=== PATIENT | female | born 1940 | race Caucasian/White ===

== ENCOUNTER 2017-09-08 07:06 | Day surgery (SDC) | payer MEDICARE, OTHER ==
[~2017-09-08] VITALS: Ht 157.5 cm; Wt 83.9 kg
[~2017-09-08 07:06] MED LIST: ACETAMINOPHEN650 M3 PO; LO-DOSE ASPIRIN81 MG PO; METOPROLOL SUCC25 MG PO; MYRBETRIQ25 MG PO; TRUSOPT10 ML OPTH; TUMS200 MG PO
--- NOTE | 2017-09-08 08:18 | NUR ---
PT HAS HAD PREVIOUS SCOPES. THIS PREP MUCH MORE TOLERABLE. PT REQUESTED PRAYER, WILL FOLLOW NEEDED
--- NOTE | 2017-09-08 08:38 | NUR ---
09/08/17 0838 Rita Hearn 0842-PATIENT ARRIVED TO PACU ON 2L NC O2 SAT 98% PATIENT REACTIVE OPENS EYES AND BACK TO SLEEP ABDOMEN ROUND AND SOFT. ENCOURAGED TO PASS FLATUS.
--- NOTE | 2017-09-08 09:39 | NUR ---
PT ARRIVED FROM PACU. PT MUCH MORE AWAKE AND CARING ON CONVERSATION. PT MARTHA PAIN AND NAUSEA. PT TOELRATING PO FLUIDS. BED RAILS UP. CALL LIGHT WITHIN REACH.
--- NOTE | 2017-09-08 09:41 | NUR ---
HAND OFF REPORT GIVEN TO KANA HERNANDEZ
--- NOTE | 2017-09-08 09:56 | NUR ---
IN TO ASSIST WITH DRESSING. DCD PER WC. HAD NO QUESTIONS ABOUT DC INSTRUCTIONS.
--- NOTE | 2017-09-08 16:56 | OR ---
[facility] [address], [place] [address] Signed DATE OF OPERATION: 09/08/2017 SURGEON: Yeimy Monroe MD PREOPERATIVE DIAGNOSES: 1. Internal hemorrhoids. 2. Hyperplastic rectal polyps in 2006. 3. Change in bowel habits with some afternoon diarrhea. POSTOPERATIVE DIAGNOSES: 1. A 3 mm polyp at 85 cm. 2. Minimal sigmoid diverticulosis. 3. Minimal internal anal skin tags. 4. Long redundant left colon. PROCEDURE: Colonoscopy with cold biopsy. ESTIMATED BLOOD LOSS: None. INDICATIONS: Ct is a 77-year-old female, who came in 2006 for a screening colonoscopy. We took out several tiny hyperplastic polyps in the mid rectum. She also had some very small internal hemorrhoid columns. In the meantime, she says she is doing fine except she gets a little diarrhea every day in the afternoon. It seems to be a change in bowel habits for her. She says there is no family history of colon cancer or polyps. She still stays busy playing the piano in [place] around [facility]. In the office, I had given Ct a pamphlet on colonoscopy and we looked at that together along with the risks including, but not limited to, gas bloating, crampy abdominal pain, bleeding, perforation, requiring surgery, and missed diagnosis. We also discussed the need for IV conscious sedation. She had expressed understanding and wished to proceed. PROCEDURE NOTE: Ct was taken into our endoscopy suite and placed in the left lateral decubitus position. She was given divided doses of 7 mg of Versed and 150 mcg of fentanyl. A digital rectal exam was performed and this was unremarkable. The adult colonoscope was introduced and advanced under direct visualization of camera. Her prep was quite excellent. She has a long redundant left colon and it did take some extra sedation and abdominal compression in order to advance the scope into the cecum itself. We could Electronically Signed By: YEIMY MONROE MD 09/08/17 1656 PATIENT NAME: CT PATIÑO OPERATIVE REPORT DATE OF : 38 PHYSICIAN: YEIMY MONROE MD REPORT #: [id number] REPORT IS CONFIDENTIAL AND NOT TO BE RELEASED WITHOUT AUTHORIZATION [facility] [address] [place] [id number] Signed easily see the [place]'s foot and the appendiceal orifice and the ileocecal valve. The scope was then slowly withdrawn. We saw just a tiny 3 mm polypoid lesion at 85 cm. It was easily removed with the help of the cold biopsy forceps. In the sigmoid colon, she has some minimal diverticulosis. They were minimal to moderate in size, minimal to moderate in number, and scattered about. The rectum itself was unremarkable. Upon retroflexion of the scope, she has just 2 or 3 tiny internal anal skin tags. After this, the gas was suctioned out and the colonoscope removed. Ct tolerated the procedure quite well. RECOMMENDATIONS: I will see Ct back in the office in 7 to 14 days to review her results. Yeimy Monroe MD ALB/MODL /[id number] cc: MD Yeimy Villeda MD Electronically Signed By: YEIMY MONROE MD 09/08/17 1656 PATIENT NAME: CT PATIÑO OPERATIVE REPORT DATE OF : 38 PHYSICIAN: YEIMY MONROE MD REPORT #: [id number] REPORT IS CONFIDENTIAL AND NOT TO BE RELEASED WITHOUT AUTHORIZATION
== END 2017-09-08 09:55 | disposition home or self-care (01) ==
LOC: OPS 07:06 → DS 07:06 → OPS 08:15 → DS 08:15 → OPS 09:55
PROVIDERS: Colon & Rectal Surgery
PROC: 0DBE8ZX Excision of Large Intestine, Via Natural or Artificial Opening Endoscopic, Diagnostic (ICD-10-PCS; principal; 2017-09-08 08:15)
DX: K63.5 Polyp of colon (principal); K57.30 Diverticulosis of large intestine without perforation or abscess without bleeding; K64.4 Residual hemorrhoidal skin tags; H40.9 Unspecified glaucoma; I10 Essential (primary) hypertension; K21.9 Gastro-esophageal reflux disease without esophagitis; K44.9 Diaphragmatic hernia without obstruction or gangrene; M19.90 Unspecified osteoarthritis, unspecified site; G47.62 Sleep related leg cramps; Z90.49 Acquired absence of other specified parts of digestive tract; Z98.890 Other specified postprocedural states; Z88.8 Allergy status to other drugs, medicaments and biological substances; Z79.82 Long term (current) use of aspirin; Z79.899 Other long term (current) drug therapy
CPT/HCPCS: 88305; 99153; G0500; J2250; J3010; J7120

== ENCOUNTER 2021-01-09 10:16 | Emergency (ER) | payer MEDICARE, OTHER ==
[~2021-01-09] VITALS: Ht 157.5 cm; Wt 81.7 kg
--- OUTSIDE RECORDS SUMMARY | 2021-01-09 10:20 | XMS ---
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 Princess has no Care Guidelines for this patient. Alan VISIT COUNT (12 MO.) 1 GERMAINE [place] TOTAL 1 NOTE: Visits indicate total known visits. ED/UCC VISIT TRACKING (12 MO.) 01/09/2021 10:17 GERMAINE [place] TYPE: Emergency COMPLAINT: - HIP/GROIN PAIN INPATIENT VISIT TRACKING (12 MO.) No inpatient visits to display in this time frame [email or web address]
[2021-01-09] MEDS ORDERED: CELECOXIB100 MG PO (10:26)
[2021-01-09] MEDS ORDERED: OXYCODONE HCL5 MG PO ×2 (10:26→13:19)
[2021-01-09] MEDS ORDERED: FUROSEMIDE20 MG PO (10:26)
[2021-01-09] MEDS ORDERED: TRAMADOL HCL50 MG PO (10:26)
[2021-01-09] MEDS ORDERED: POTASSIUM CHLO10 ME2 PO (10:27)
[2021-01-09] MEDS ORDERED: TIMOLOL MALEATE5 M2 OP (10:27)
[2021-01-09] MEDS ORDERED: SENNA8.6 MG PO (13:20)
[2021-01-09] MEDS ORDERED: COLACE100 MG PO (13:20)
[2021-01-09] MEDS ORDERED: ONDANSETRON ODT8 MG PO (13:20)
[2021-01-09] MEDS ORDERED: MELOXICAM5 MG PO (13:20)
== END 2021-01-10 09:25 | disposition short-term general hospital (02) ==
LOC: ED 10:16
DX: S72.001A Fracture of unspecified part of neck of right femur, initial encounter for closed fracture (principal); M97.01XA Periprosthetic fracture around internal prosthetic right hip joint, initial encounter; M25.551 Pain in right hip; M79.604 Pain in right leg; X58.XXXA Exposure to other specified factors, initial encounter; I10 Essential (primary) hypertension; Z88.6 Allergy status to analgesic agent; Z88.8 Allergy status to other drugs, medicaments and biological substances; Z79.899 Other long term (current) drug therapy; Z79.82 Long term (current) use of aspirin; Z20.822 Contact with and (suspected) exposure to COVID-19
CPT/HCPCS: 51702; 72170; 73552; 93971; 99285-25; C9803; J2270; J2405; J7030; U0003